=== PATIENT | female | born 1970 | race Caucasian/White ===

== ENCOUNTER → 2021-03-30 | Outpatient (CLI) | payer OTHER ==
--- NOTE | 2021-03-30 16:55 | P.HPBAR ---
Bariatric H&P - History & Physicial H&P Date: 03/30/21 History & Physicial: Visit/CC: Patient initial contact: Initial weight: Initial weight in pounds: Height: 5 ft 6.5 in Initial BMI: Last weight: Current weight: 142.927 kg Current weight in pounds: Current BMI: [place] body weight (based on NIH guidelines): Excess body weight loss: The patient is a 51 year-old F who presents for Bariatric Assessment. DATE OF SERVICE: 03/30/2021 REASON FOR CONSULTATION: Initial bariatric evaluation. HISTORY OF PRESENT ILLNESS: Darlene Davila is a 51-year-old female who comes in with lifelong morbid obesity. She is looking into weight loss. She comes in with BMI over 50. She has tried weight watchers, Atkins, phen-phen for weight loss. Her most weight loss is 55 pounds with weight watchers. Her brother was 650 pounds when he . Her mother was over 350 pounds. She denies DVTs in the family. She reports back pain, fibromyalgia, knee, hips, ankles and feet pain. She has sleep apnea testing. She still has her gallbladder. She has moderate gastroesophageal reflux disease. She is due for a colonoscopy next month. Her highest weight is 357 pounds. At height of 5 feet 6.5 inches, her ideal body weight is 154 pounds. Her highest is 357 pounds, body mass index 56.9. She comes in 314 pounds. Her body mass index is 50.1. She is 160 pounds overweight. PAST MEDICAL HISTORY: 1. Morbid obesity due to excess calories 2. Body mass index of 56.9, initial 3. Osteoarthritis of the knees. 4. Osteoarthritis of the lower back. 5. Osteoarthritis of the hips 6. Osteoarthritis of the feet 7. Fibromyalgia 8. Gastroesophageal reflux disease 9. Obstructive sleep apnea 10. Hyperlipidemia 11. Hypertensive heart disease. 12. Rheumatoid arthritis 13. Depressive disorder PAST SURGICAL HISTORY: 1. Heart catheterization 2. Bilateral knee arthroscopies 3. Right should arthroscopy HOME MEDICATIONS: Home Medications Medication Instructions Recorded Confirmed Acetaminophen [Tylenol Extra 500 mg PO DIRECTED PRN 03/30/21 05/18/21 Strength] Atorvastatin [Lipitor] 10 mg PO DAILY 03/30/21 05/18/21 Celecoxib [CeleBREX] 200 mg PO DAILY 03/30/21 05/18/21 Cetirizine HCl/Pseudoephedrine 1 each PO DAILY 03/30/21 05/18/21 [Zyrtec-D Tablet] Cholecalciferol [Vitamin D3 (25 50 mcg PO DAILY 03/30/21 05/18/21 Mcg = 1000 Iu)] Metoprolol Succinate [Toprol XL] 50 mg PO BID 03/30/21 05/18/21 Nortriptyline [Pamelor] 100 mg PO HS 03/30/21 05/18/21 Omeprazole 40 mg PO BID 03/30/21 05/18/21 Sennosides [Senna] 8.6 mg PO DAILY 03/30/21 05/18/21 lamoTRIgine 100 mg PO BID 03/30/21 05/18/21 ALLERGIES: Allergies Allergy/AdvReac Type Severity Reaction Status Date / Time dobutamine Allergy Anaphylaxis Verified 05/18/21 12:54 gabapentin Allergy Hallucinati Verified 05/18/21 12:54 ons pregabalin [From Lyrica] Allergy Hallucinati Verified 05/18/21 12:54 ons surgical tape Allergy Rash/Hives Uncoded 05/18/21 12:54 SOCIAL HISTORY: Denies past tobacco use. FAMILY HISTORY: No family history of ulcerative colitis disease or Crohn's disease. Family history of morbid obesity. No lupus in the family. No reports of stomach or esophageal cancer. Her brother was 650 pounds when he . Her mother was over 350 pounds. She denies DVTs in the family. REVIEW OF ORGAN SYSTEMS: CONSTITUTIONAL: At height of 5 feet 6.5 inches, her ideal body weight is 154 pounds. Her highest is 357 pounds, body mass index 56.9. She comes in 314 pounds. Her body mass index is 50.1. She is 160 pounds overweight. HEENT: Denies any active troubles with vision or hearing. ENDOCRINE: Denies diabetes. No hypothyroidism. CARDIOVASCULAR: Denies past reports of palpitations or heart attacks or chest pain. Has hypertensive heart disease. RESPIRATORY: Has daytime somnolence. GASTROINTESTINAL: Denies any bright red blood per rectum. No diarrhea. No constipation. Has gastroesophageal reflux disease. GENITOURINARY: Denies bladder urgency. No recent blood in urine MUSCULOSKELETAL: Has lower back pain and joint pain. Has osteoarthritis of the knees, hips. NEURO: No headaches. No seizure disorders. PSYCH: Has depression. No suicidal ideation. RHEUMATOLOGIC: No lupus. No rheumatoid arthritis. HEMATOLOGIC: Denies any abnormal bleeding or bruising. SKIN: No rash. No skin cancer. PHYSICAL EXAM: VITAL SIGNS: Height 5 foot 6.5 inches, weight 314 pounds. BMI 50.1 Vital Signs Temp 98.7 F 03/30/21 16:36 Pulse 74 03/30/21 16:36 Resp 18 03/30/21 16:36 BP 149/88 03/30/21 16:36 Pulse Ox GENERAL: Well-developed in no acute distress. HEENT: No scleral icterus. Extraocular movements grossly intact. Hears conversational speech. No nasal drainage. NECK: Supple without lymphadenopathy. CHEST: Nonlabored respirations with equal bilateral excursions. CARDIOVASCULAR: Regular rate and regular rhythm. Distal 2+ pulses. ABDOMEN: Obese, soft, nontender, nondistended. MUSCULOSKELETAL: No clubbing, cyanosis. NEURO: No focal or lateralizing signs. Cranial nerves 2 through 12 grossly within normal limits. PSYCH: Appropriate affect. Alert and oriented to person, place and time. SKIN: Good skin turgor. Well perfused. ASSESSMENT: 1. Morbid obesity due to excess calories 2. Body mass index of 56.9, initial 3. Osteoarthritis of the knees. 4. Osteoarthritis of the lower back. 5. Osteoarthritis of the hips 6. Osteoarthritis of the feet 7. Fibromyalgia 8. Gastroesophageal reflux disease 9. Obstructive sleep apnea 10. Hyperlipidemia 11. Hypertensive heart disease. 12. Rheumatoid arthritis 13. Depressive disorder PLAN: 1. Surgical options including a band, gastric bypass, sleeve gastrectomy were described in detail. Alternatives such as gastric balloon including duodenal switch were described. 2. The [place] bariatric surgical collaborative data and outcomes calculator were described with surgical options. 3. Recommend a bariatric metabolic panel to evaluate for micro- including macronutrient deficiencies. 4. For history of daytime somnolence, recommend evaluation and treatment for sleep apnea. 5. Dietary surveillance and counseling was reviewed. Increased protein intake over 65 grams daily advised. 6. Will need cardiac risk assessment. 7. Recommend medical risk assessment. 8. Psych assessment per insurance guidelines. 9. Recommend upper endoscopy. 10. Recommend 12-lead EKG. 11. Recommend urine drug screen 12. She is due for a colonoscopy. Recommend colonoscopy. 13. She is elevated risk due to BMI over 50. Thank you for this consultation. Bariatric Checklist Checklist: Plan: Checklist: EGD: 1. Hiatal hernia: 2. H. Pylori: HgbA1c: Vitamin D: Smoking: Primary care physician referral: Psychiatry clearance: Cardiology clearance: Sleep study: Diet journal: VTE risk score: VTE risk level: Rehab needs at discharge:
[2021-03-30 17:06] VITALS: BP 149/88; PULSE 74; RESP 18; TEMP 98.7; BMI 50.1
== END ==
LOC: BARWHC3 15:27
PROVIDERS: ATTEND Surgery Plastic and Reconstructive Surgery
DX: E66.01 Morbid (severe) obesity due to excess calories (principal); Z68.43 Body mass index [BMI] 50.0-59.9, adult; M17.0 Bilateral primary osteoarthritis of knee; M47.9 Spondylosis, unspecified; M16.0 Bilateral primary osteoarthritis of hip; M19.071 Primary osteoarthritis, right ankle and foot; M19.072 Primary osteoarthritis, left ankle and foot; M79.7 Fibromyalgia; K21.9 Gastro-esophageal reflux disease without esophagitis; G47.33 Obstructive sleep apnea (adult) (pediatric); E78.5 Hyperlipidemia, unspecified; I11.0 Hypertensive heart disease with heart failure; F32.9 Major depressive disorder, single episode, unspecified; M06.9 Rheumatoid arthritis, unspecified; Z79.899 Other long term (current) drug therapy; Z88.8 Allergy status to other drugs, medicaments and biological substances; Z91.048 Other nonmedicinal substance allergy status
CPT/HCPCS: 99203

== ENCOUNTER → 2021-04-20 | Outpatient (CLI) | payer OTHER ==
[2021-04-20 14:03] LABS: Partial Thromboplastin Time 23.2 sec (22.0-30.0); Prothrombin Time 10.4 sec (9.0-12.0)
[2021-04-20 19:17] LABS: HCT 35.4 % (37.2-46.3); HGB 11.3 g/dL (12.0-15.0); MCHC 31.9 g/dL (32.0-37.0); MCV 87.8 fL (80.0-97.0); Mean Platelet Volume 10.2 fL (9.5-12.2); Platelet Count 309 X 10*3/uL (140-440); RBC 4.03 X 10*6/uL (4.10-5.20); WBC 10.25 X 10*3/uL (4.50-10.00)
[2021-04-21 03:50] LABS: % Iron Saturation 13.99 (12.00-45.00); African American GFR (CKD) 76.1 (60.0-200.0); Albumin 4.2 g/dL (3.80-4.90); Albumin/Globulin Ratio 1.56 (1.60-3.17); Anion Gap 13.3 mmol/L (4.00-12.00); Calcium 9.2 mg/dL (8.7-10.3); Carbon Dioxide 26.7 mmol/L (21.6-31.8); Chol/HDL Ratio 3.14; Globulin 2.7 g/dL (1.6-3.3); LDL Cholesterol,Calculated 77.6 mg/dL (0.0-131.0); Magnesium 1.6 mg/dL (1.5-2.4); Non-African American GFR(CKD) 65.6 (60.0-200.0); Phosphorus 4.2 mg/dL (2.4-5.1); Potassium 4.9 mmol/L (3.5-5.5); Total Bilirubin 0.3 mg/dL (0.3-1.2); Total Protein 6.9 g/dL (6.2-8.2); VLDL Calculation 27.4 mg/dL (5.00-40.00)
[2021-04-21 04:01] LABS: Ferritin 44.3 ng/mL (10.0-291.0)
[2021-04-21 04:11] LABS: Folate, Serum 12.4 ng/mL
[2021-04-22 05:38] LABS: Vit B1(Thiamine) 63 ug/L (38-122)
[2021-04-22 12:51] LABS: Zinc, Serum 58 ug/dL (60-130)
== END | disposition home or self-care (01) ==
LOC: LABPAT 12:18
PROVIDERS: ATTEND Surgery Plastic and Reconstructive Surgery
DX: N19 Unspecified kidney failure (principal); E89.1 Postprocedural hypoinsulinemia; E55.9 Vitamin D deficiency, unspecified; E66.01 Morbid (severe) obesity due to excess calories; D50.8 Other iron deficiency anemias; K90.89 Other intestinal malabsorption; K74.1 Hepatic sclerosis; K50.90 Crohn's disease, unspecified, without complications; Z71.51 Drug abuse counseling and surveillance of drug abuser; R00.1 Bradycardia, unspecified; R94.31 Abnormal electrocardiogram [ECG] [EKG]
CPT/HCPCS: 84255; 84134; 84425; 80061; 80053; 82607; 82728; 82525; 82746; 83540; 83550; 83735; 84100; 84443; 84590; 84630; 85027; 85610; 85730; 82306; 83970; 83036; 80307; 93005; 36415; G0480; G0482; 80323

== ENCOUNTER 2021-07-18 07:33 | Day surgery (SDC) | payer OTHER ==
[2021-07-15 09:03] VITALS: BMI 48.6
[~2021-07-18 07:33] MED LIST: HYDROmorphone 0.5 MG/0.5 ML SYRINGE IVP PRN; LACTATED RINGERS 1,000 ML IV SCH; LIDOCAINE 1% (10MG/ML) FOR IV START INTRADERMA PRN; MIDAZOLAM 2 MG/2 ML VIAL IV PRN
--- NOTE | 2021-07-18 07:40 | P.GSHP ---
History of Present Illness H&P Date: 07/18/21 CHIEF COMPLAINT: GERD HISTORY OF PRESENT ILLNESS: The patient is a 51-year-old female who presents reports gastroesophageal reflux disease. Upper endoscopy was offered for further evaluation and management. PAST MEDICAL HISTORY: Please see list. PAST SURGICAL HISTORY: Please see list. MEDICATIONS: Please see list. ALLERGIES: Please see list. SOCIAL HISTORY: No illicit drug use FAMILY HISTORY: No reports of Crohn disease or ulcerative colitis. REVIEW OF ORGAN SYSTEMS: CONSTITUTIONAL: No reports of fevers or chills. GI: Denies any blood in stools or constipation. PHYSICAL EXAM: VITAL SIGNS: Stable GENERAL: Well-developed and pleasant in no acute distress. HEENT: No scleral icterus. Extraocular movements grossly intact. Moist buccal mucosa. NECK: Supple without lymphadenopathy. CHEST: Unlabored respirations. Equal bilateral excursions. CARDIOVASCULAR: Regular rate and rhythm. Distal 2+ pulses. ABDOMEN: Soft, nondistended. MUSCULOSKELETAL: No clubbing, cyanosis, or edema. ASSESSMENT: 1. Gastroesophageal reflux disease PLAN: 1. Recommend proceeding with an upper endoscopy Past Medical History Past Medical History: Fibromyalgia, GERD/Reflux, Hypertension, Rheumatoid Arthritis (RA), Thyroid Disorder Additional Past Medical History / Comment(s): heart murmur., seasonal allergies., Received [facility] covid vaccine 01/05/21. History of Any Multi-Drug Resistant Organisms: None Reported Past Surgical History: Heart Catheterization, Orthopedic Surgery Additional Past Surgical History / Comment(s): bilat knee scopes. right shoulder scope. left pinky finger cyst removed. , heart cath (2019- [facility]) Past Anesthesia/Blood Transfusion Reactions: Previous Problems w/ Anesthesia, Motion Sickness, Postoperative Nausea & Vomiting (PONV) Past Psychological History: Anxiety, Depression Smoking Status: Never smoker Past Alcohol Use History: Rare Past Drug Use History: None Reported - Past Family History Mother Family Medical History: Cancer Additional Family Medical History / Comment(s): liver cancer Father Family Medical History: Cancer Additional Family Medical History / Comment(s): kidney cancer Brother(s) Family Medical History: Cancer Additional Family Medical History / Comment(s): kidney cancer Medications and Allergies Home Medications Medication Instructions Recorded Confirmed Type Atorvastatin [Lipitor] 10 mg PO DAILY 03/30/21 07/15/21 History Celecoxib [CeleBREX] 200 mg PO DAILY 03/30/21 07/15/21 History Cholecalciferol [Vitamin D3 (25 50 mcg PO DAILY 03/30/21 07/15/21 History Mcg = 1000 Iu)] lamoTRIgine 100 mg PO BID 03/30/21 07/15/21 History Brexpiprazole [Rexulti] 2 mg PO HS 06/29/21 07/15/21 History Levothyroxine Sodium [Synthroid] 25 mcg PO DAILY #30 tab 06/29/21 07/15/21 Rx Acetaminophen with Codeine 1 tab PO BID PRN 07/15/21 07/15/21 History [Tylenol w/Codeine #4 Tablet] Fiber Tabs 2 tab PO DAILY 07/15/21 History Fluticasone Nasal [place] [Flonase 1 spray EA NOSTRIL DAILY 07/15/21 07/15/21 History Nasal [place]] Lactulose 2 tbsp PO Q8HR PRN 07/15/21 History Metoprolol Tartrate [Lopressor] 50 mg PO BID 07/15/21 07/15/21 History Montelukast [Singulair] 10 mg PO HS 07/15/21 07/15/21 History Mv-Min/Folic/Vit K/Lut/Tian460 1 each PO DAILY 07/15/21 07/15/21 History [Alive Women's 50 Plus Tablet] Nortriptyline [Pamelor] 120 mg PO HS 07/15/21 07/15/21 History Omeprazole 20 mg PO HS 07/15/21 07/15/21 History Omeprazole 60 mg PO QAM 07/15/21 07/15/21 History Zinc 50 mg PO DAILY 07/15/21 07/15/21 History Zyrtec Or Claritin 1 tab PO DAILY 07/15/21 History tiZANidine [Zanaflex] 8 mg PO Q8HR PRN 07/15/21 07/15/21 History Allergies Allergy/AdvReac Type Severity Reaction Status Date / Time dobutamine Allergy Anaphylaxis Verified 07/15/21 08:22 gabapentin Allergy Hallucinati Verified 07/15/21 08:22 ons pregabalin [From Lyrica] Allergy Hallucinati Verified 07/15/21 08:22 ons surgical tape Allergy Rash/Hives Uncoded 07/15/21 08:22
[2021-07-18] MEDS ORDERED: ONDANSETRON 4 MG/2 ML VIAL ONE (08:24)
[2021-07-18 08:27] VITALS: TEMP 97
[2021-07-18] MEDS ORDERED: ONDANSETRON 4 MG/2 ML VIAL IVP ONE (08:31)
[2021-07-18] MEDS ORDERED: PROPOFOL 10 MG/ML 20 ML VIAL IV ONE (08:35)
[2021-07-18] MEDS ORDERED: LIDOCAINE 1% INJ 10MG/ML (20 ML MDV) ONE (08:35)
[2021-07-18 08:47] LABS: HCT 38.7 % (34.0-46.0); HGB 12.9 gm/dL (11.4-16.0); MCH 29.1 pg (25.0-35.0); MCHC 33.4 g/dL (31.0-37.0); MCV 87.1 fL (80.0-100.0); Mean Platelet Volume 7.2; Platelet Count 314 k/uL (150-450); RBC 4.45 m/uL (3.80-5.40); WBC 10.9 k/uL (3.8-10.6)
[2021-07-18 08:53] VITALS: RESP 16
[2021-07-18 09:06] VITALS: BP 116/74; PULSE 62
--- NOTE | 2021-07-18 09:20 | P.PCN ---
Date of Procedure: 07/18/21 Description of Procedure: PREOPERATIVE DIAGNOSIS: Gastroesophageal reflux disease. Morbid obesity. POSTOPERATIVE DIAGNOSIS: Morbid obesity. Gastritis. Gastroesophageal reflux disease. OPERATION: Esophagogastroduodenoscopy with biopsies along antrum. SURGEON: Darlene Webster MD ANESTHESIA: MAC. INDICATIONS: The patient is a 51-year-old female who presents with a history of reflux disease. Benefits and risks of the procedure were described. Informed consent was obtained. DESCRIPTION: The patient was brought into the endoscopy suite and laid in the left lateral decubitus position. An Olympus gastroscope was passed along the posterior oropharynx down to the distal esophagus where the squamocolumnar junction was encountered at 36 cm from the incisors. The stomach was entered and no bile reflux was found. Additional findings are listed below. Biopsies with cold forceps were obtained of the antrum. The first through third portion of the duodenum was examined and unremarkable. Retroflexion of the scope confirmed Hill grade 2 lower esophageal valve. The squamocolumnar junction demonstrated LA grade A erosive esophagitis. The stomach was desufflated. The patient tolerated the procedure well. FINDINGS: Squamocolumnar junction 36 cm from the incisors. Diaphragmatic hiatus at 36 cm. Hill grade 2 lower esophageal valve. LA grade A erosive esophagitis. No active duodenitis. Chronic gastritis RECOMMENDATIONS: Upper endoscopy as needed. Plan - Discharge Summary New Discharge Prescriptions: Continue Cholecalciferol [Vitamin D3 (25 Mcg = 1000 Iu)] 50 mcg PO DAILY Celecoxib [CeleBREX] 200 mg PO DAILY lamoTRIgine 100 mg PO BID Brexpiprazole [Rexulti] 2 mg PO HS Metoprolol Tartrate [Lopressor] 50 mg PO BID Acetaminophen with Codeine [Tylenol w/Codeine #4 Tablet] 1 tab PO BID PRN PRN Reason: Pain Omeprazole 60 mg PO QAM Fiber Tabs 2 tab PO DAILY Atorvastatin [Lipitor] 10 mg PO DAILY Levothyroxine Sodium [Synthroid] 25 mcg PO DAILY #30 tab tiZANidine [Zanaflex] 8 mg PO Q8HR PRN PRN Reason: Pain Fluticasone Nasal [place] [Flonase Nasal [place]] 1 spray EA NOSTRIL DAILY Montelukast [Singulair] 10 mg PO HS Zyrtec Or Claritin 1 tab PO DAILY Omeprazole 20 mg PO HS Nortriptyline [Pamelor] 120 mg PO HS Zinc 50 mg PO DAILY Mv-Min/Folic/Vit K/Lut/Enne439 [Alive Women's 50 Plus Tablet] 1 each PO DAILY Lactulose 2 tbsp PO Q8HR PRN PRN Reason: Constipation Discharge Medication List Atorvastatin [Lipitor] 10 mg PO DAILY 03/30/21 [History] Celecoxib [CeleBREX] 200 mg PO DAILY 03/30/21 [History] Cholecalciferol [Vitamin D3 (25 Mcg = 1000 Iu)] 50 mcg PO DAILY 03/30/21 [History] lamoTRIgine 100 mg PO BID 03/30/21 [History] Brexpiprazole [Rexulti] 2 mg PO HS 06/29/21 [History] Levothyroxine Sodium [Synthroid] 25 mcg PO DAILY #30 tab 06/29/21 [Rx] Acetaminophen with Codeine [Tylenol w/Codeine #4 Tablet] 1 tab PO BID PRN 07/15/21 [History] Fiber Tabs 2 tab PO DAILY 07/15/21 [History] Fluticasone Nasal [place] [Flonase Nasal [place]] 1 spray EA NOSTRIL DAILY 07/15/21 [History] Lactulose 2 tbsp PO Q8HR PRN 07/15/21 [History] Metoprolol Tartrate [Lopressor] 50 mg PO BID 07/15/21 [History] Montelukast [Singulair] 10 mg PO HS 07/15/21 [History] Mv-Min/Folic/Vit K/Lut/Ahol868 [Alive Women's 50 Plus Tablet] 1 each PO DAILY 07/15/21 [History] Nortriptyline [Pamelor] 120 mg PO HS 07/15/21 [History] Omeprazole 20 mg PO HS 07/15/21 [History] Omeprazole 60 mg PO QAM 07/15/21 [History] Zinc 50 mg PO DAILY 07/15/21 [History] Zyrtec Or Claritin 1 tab PO DAILY 07/15/21 [History] tiZANidine [Zanaflex] 8 mg PO Q8HR PRN 07/15/21 [History] [facility] [place] [facility] [facility] [place] [place] [place]21 1:45 pm Patient Instructions/Handouts: *Sur[facility] - (Anesthesia) Endoscopy Discharge Instructions, Gastroesophageal Reflux Disease (DC) Discharge Disposition: HOME SELF-CARE
== END 2021-07-18 10:12 | disposition home or self-care (01) ==
LOC: ORWHC2ENDO 07:33
PROVIDERS: ATTEND Surgery Plastic and Reconstructive Surgery
DX: K29.50 Unspecified chronic gastritis without bleeding (principal); K22.10 Ulcer of esophagus without bleeding; K21.9 Gastro-esophageal reflux disease without esophagitis; E66.01 Morbid (severe) obesity due to excess calories; Z68.42 Body mass index [BMI] 45.0-49.9, adult; M79.7 Fibromyalgia; I10 Essential (primary) hypertension; M06.9 Rheumatoid arthritis, unspecified; E07.9 Disorder of thyroid, unspecified; R01.1 Cardiac murmur, unspecified; J30.2 Other seasonal allergic rhinitis; Z98.890 Other specified postprocedural states; F41.9 Anxiety disorder, unspecified; F32.9 Major depressive disorder, single episode, unspecified; Z80.0 Family history of malignant neoplasm of digestive organs; Z80.51 Family history of malignant neoplasm of kidney; Z79.899 Other long term (current) drug therapy; Z79.890 Hormone replacement therapy; Z88.6 Allergy status to analgesic agent; Z88.8 Allergy status to other drugs, medicaments and biological substances; Z91.09 Other allergy status, other than to drugs and biological substances
CPT/HCPCS: 81025; 88305; 84443; 85027; 43239; J2405; J2001; J2704

== ENCOUNTER → 2021-07-25 | Outpatient (CLI) | payer OTHER ==
[2021-07-25 09:48] VITALS: BMI 50.1
== END ==
LOC: BARWHC3 08:38
PROVIDERS: ATTEND Surgery Plastic and Reconstructive Surgery
DX: E66.01 Morbid (severe) obesity due to excess calories (principal); Z71.3 Dietary counseling and surveillance; Z68.43 Body mass index [BMI] 50.0-59.9, adult; Z88.8 Allergy status to other drugs, medicaments and biological substances; Z91.048 Other nonmedicinal substance allergy status
CPT/HCPCS: 97804